=== PATIENT | male | born 1980 | race Hispanic/Latino ===

== ENCOUNTER 2018-08-01 12:12 | Emergency (ER) | payer SELFPAY ==
[2018-08-01] MEDS ORDERED: KETOROLAC TROMETHAMINE 30MG/ML ONE (12:48)
[2018-08-01] MEDS ORDERED: METHYLPREDNISOLONE SOD SUCC 125MG/2ML VIAL ONE (12:48)
[2018-08-01] MEDS ORDERED: DIAZEPAM 5 MG TABLET ONE (13:33)
== END 2018-08-01 14:08 | disposition home or self-care (01) ==
LOC: EDH 12:12
DX: M54.5 Low back pain (principal); L73.2 Hidradenitis suppurativa; E11.9 Type 2 diabetes mellitus without complications; F12.10 Cannabis abuse, uncomplicated; Z90.49 Acquired absence of other specified parts of digestive tract
CPT/HCPCS: 96372 ×2; 99283; J1885; J2930

== ENCOUNTER 2018-08-06 10:14 | Emergency (ER) | payer SELFPAY ==
[2018-08-06] MEDS ORDERED: LIDOCAINE 2%-EPI 1:200,000 20 ML VIAL IJ ONE (10:47)
== END 2018-08-06 11:23 | disposition home or self-care (01) ==
LOC: EDH 10:14
DX: L73.2 Hidradenitis suppurativa (principal); E11.9 Type 2 diabetes mellitus without complications; Z90.49 Acquired absence of other specified parts of digestive tract; Z72.0 Tobacco use
CPT/HCPCS: 10060; 99283; J3490

== ENCOUNTER 2019-04-26 20:22 | Emergency (ER) | payer OTHER ==
[2019-04-26] MEDS ORDERED: SODIUM CHLORIDE 0.9% 1000ML 1,000 ML IV ONE ×2 (21:10→22:13)
[2019-04-26 21:11] LABS: BASOPHILS % (AUTO) 0.9 % (0.0-5.0); EOSINOPHILS % (AUTO) 4.3 % (0.0-8.0); HEMATOCRIT 48.2 % (42-54); LYMPHOCYTES % (AUTO) 34.7 % (21.0-51.0); MEAN CORPUSCULAR HEMOGLOBIN 29.7 pg (27.0-33.0); NEUTROPHILS % (AUTO) 53.1 % (40.0-77.0); NUCLEATED RED BLOOD CELLS 0.1 % (0.0-0.19); PLATELET COUNT (AUTO) 144 K/uL (130-400); RED BLOOD CELL COUNT(AUTO) 5.68 MIL/uL (4.50-6.20); RED CELL DISTRIBUTION WIDTH 13.2 % (11.0-15.5); WHITE BLOOD COUNT (AUTO) 7.3 K/uL (4.8-10.8)
[2019-04-26 21:24] LABS: CREATININE 0.8 mg/dL (0.5-1.5); POTASSIUM 3.8 mmol/L (3.5-5.1)
[2019-04-26 21:28] LABS: INR 0.95 (0.85-1.15); PARTIAL THROMBOPLASTIN TIME 26.7 SEC (26.3-35.5)
[2019-04-26 21:36] LABS: BILIRUBIN,TOTAL 0.4 mg/dL (0.2-1.0); THYROID STIMULATING HORMONE 1.42 uIU/mL (0.36-3.74); TOTAL PROTEIN, SERUM 7.8 g/dL (6.0-8.3)
[2019-04-26 21:41] LABS: B-TYPE NATRIURETIC PEPTIDE 16 pg/mL (0-100)
[2019-04-26 21:50] LABS: APPEARANCE,URINE Clear (CLEAR); BILIRUBIN,URINE Negative (NEGATIVE); COLOR,URINE Dark Yellow (YELLOW); GLUCOSE, URINE (UA) >=1000 mg/dL (NEGATIVE); KETONES,URINE Negative (NEGATIVE); LEUKOCYTE ESTERASE ,URINE Negative (NEGATIVE); NITRATE,URINE Negative (NEGATIVE); OCCULT BLOOD,URINE Negative (NEGATIVE); PROTEIN,URINE POS 1+ mg/dL (NEGATIVE)
[2019-04-26 21:58] LABS: AMPHET/METH SCREEN,URINE NEGATIVE (NEGATIVE); BARBITURATE SCREEN, URINE NEGATIVE (NEGATIVE); BENZODIAZEPINES SCREEN,URINE NEGATIVE (NEGATIVE); CANNABINOID SCREEN,URINE POSITIVE (NEGATIVE); COCAINE SCREEN,URINE NEGATIVE (NEGATIVE); OPIATE SCREEN,URINE NEGATIVE (NEGATIVE); PHENCYCLIDINE SCREEN,URINE NEGATIVE (NEGATIVE)
[2019-04-26 22:02] LABS: BACTERIA,URINE Few /HPF (None Seen)
[2019-04-26 22:03] LABS: MUCUS,URINE Many LPF (None Seen); SPERM,URINE Moderate /HPF (None Seen); SQUAMOUS EPITHELIAL CELL,UR 0-2 /HPF (0-2)
[2019-04-26] MEDS ORDERED: ACETAMINOPHEN 325 MG TAB ONE (22:13)
[2019-04-26] MEDS ORDERED: METFORMIN HCL 500 MG TABLET ONE (22:50)
== END 2019-04-26 23:14 | disposition home or self-care (01) ==
LOC: EDH 20:22
DX: E86.9 Volume depletion, unspecified (principal); F41.1 Generalized anxiety disorder; E11.65 Type 2 diabetes mellitus with hyperglycemia; Z90.49 Acquired absence of other specified parts of digestive tract; Z72.0 Tobacco use
CPT/HCPCS: 36415; 71045; 80053; 80305; 81001; 82550; 82948; 83605; 83690; 83880; 84443; 84484; 85025; 85610; 85730; 93005; 96360; 96361; 99285; J7030 ×2

== ENCOUNTER 2019-07-29 12:08 | Inpatient (IN) | payer SELFPAY ==
[~2019-07-29] VITALS: Ht 182.9 cm; Wt 117.5 kg
[2019-07-29] MEDS ORDERED: ONDANSETRON HCL 4 MG/2 ML VIAL ONE ×2 (12:21→13:43)
[2019-07-29 12:26] LABS: BASOPHILS % (AUTO) 0.7 % (0.0-5.0); EOSINOPHILS % (AUTO) 1.8 % (0.0-8.0); LYMPHOCYTES % (AUTO) 26.4 % (21.0-51.0); MEAN CORPUSCULAR HGB CONC 34.4 g/dL (32.0-36.0); MEAN CORPUSCULAR VOLUME 87.2 fL (79-99); MONOCYTES % (AUTO) 6.5 % (3.0-13.0); NEUTROPHILS % (AUTO) 64.6 % (40.0-77.0); PLATELET COUNT (AUTO) 135 K/uL (130-400); RED BLOOD CELL COUNT(AUTO) 5.51 MIL/uL (4.50-6.20); WHITE BLOOD COUNT (AUTO) 8.3 K/uL (4.8-10.8)
[2019-07-29] MEDS ORDERED: SODIUM CHLORIDE 0.9% 1000ML 1,000 ML IV ONE ×3 (12:27→14:49)
[2019-07-29 12:38] LABS: CREATININE 0.9 mg/dL (0.5-1.5); POTASSIUM 3.7 mmol/L (3.5-5.1)
[2019-07-29 12:43] LABS: ALBUMIN 4.4 g/dL (3.5-5.0); BILIRUBIN,TOTAL 0.6 mg/dL (0.2-1.0); TOTAL PROTEIN, SERUM 8.1 g/dL (6.0-8.3)
[2019-07-29 13:59] LABS: APPEARANCE,URINE Clear (CLEAR); BILIRUBIN,URINE Negative (NEGATIVE); COLOR,URINE Yellow (YELLOW); GLUCOSE, URINE (UA) >=1000 mg/dL (NEGATIVE); KETONES,URINE 40 mg/dL (NEGATIVE); LEUKOCYTE ESTERASE ,URINE Negative (NEGATIVE); NITRATE,URINE Negative (NEGATIVE); OCCULT BLOOD,URINE Negative (NEGATIVE); PH,URINE 7.5 (5.0-8.0); PROTEIN,URINE Negative (NEGATIVE)
[2019-07-29 14:06] LABS: AMPHET/METH SCREEN,URINE NEGATIVE (NEGATIVE); BARBITURATE SCREEN, URINE NEGATIVE (NEGATIVE); BENZODIAZEPINES SCREEN,URINE NEGATIVE (NEGATIVE); CANNABINOID SCREEN,URINE POSITIVE (NEGATIVE); COCAINE SCREEN,URINE NEGATIVE (NEGATIVE); OPIATE SCREEN,URINE NEGATIVE (NEGATIVE); PHENCYCLIDINE SCREEN,URINE NEGATIVE (NEGATIVE)
[2019-07-29 14:35] LABS: BACTERIA,URINE Rare /HPF (None Seen); RBC,URINE 0-1 /HPF (0-1); SQUAMOUS EPITHELIAL CELL,UR Rare /HPF (0-2); WBC,URINE 0-1 /HPF (0-1)
[2019-07-29] MEDS ORDERED: KETOROLAC TROMETHAMINE 30MG/ML ONE (14:48)
[2019-07-29] MEDS ORDERED: ACETAMINOPHEN 650 MG SUPPOSITORY RC PRN (19:15)
[2019-07-29 22:00] VITALS: BP 145/99
--- NOTE | 2019-07-29 22:00 | NUR ---
ADMISSION PT ADMITTED FROM ER INTO ROOM 412, AWAKE, ALERT AND VERBALLY RESPONSIVE. NO C/O PAIN OR DISCOMFORT AT THIS TIME. MEDICATED PREVIOUSLY FOR NAUSEA AND PAIN IN THE ER STATES HE IS FEELING FINE. PT AND FAMILY ORIENTED TO ROOM, CALL PHELAN WITHIN REACH, BED IN LOWEST POSITION. Addendum: 07/29/19 at 2228 by MALKA BURLESON RN Amended: Links added.
[2019-07-29] MEDS: FAMOTIDINE/PF 20 MG/2 ML VIAL IV SCH (22:37)
[2019-07-29] MEDS: LACTATED RINGERS 1000ML 1,000 ML IV SCH (22:37)
[2019-07-29 23:19] VITALS: BP 172/102
[2019-07-29] MEDS: PROMETHAZINE HCL 25 MG/ML 1ML AMPULE IM SCH (23:35)
[2019-07-30] VITALS (7 sets, daily range): BP systolic 124–159; BP diastolic 70–91
[2019-07-30] MEDS: LACTATED RINGERS 1000ML 1,000 ML IV SCH ×3 (06:07→20:32)
[2019-07-30 06:20] LABS: BASOPHILS % (AUTO) 0.4 % (0.0-5.0); HEMATOCRIT 42.6 % (42-54); MEAN CORPUSCULAR HEMOGLOBIN 29.7 pg (27.0-33.0); MEAN CORPUSCULAR HGB CONC 34.6 g/dL (32.0-36.0); MEAN CORPUSCULAR VOLUME 85.9 fL (79-99); MONOCYTES % (AUTO) 5.9 % (3.0-13.0); NEUTROPHILS % (AUTO) 78.7 % (40.0-77.0); NUCLEATED RED BLOOD CELLS 0.1 % (0.0-0.19); PLATELET COUNT (AUTO) 140 K/uL (130-400); RED BLOOD CELL COUNT(AUTO) 4.96 MIL/uL (4.50-6.20); WHITE BLOOD COUNT (AUTO) 8.4 K/uL (4.8-10.8)
[2019-07-30 06:25] LABS: HEMOGLOBIN A1C 8.7 % (4.0-6.0)
[2019-07-30 06:40] LABS: ALANINE AMINOTRANSFERASE 20 U/L (12-78); ALBUMIN 3.5 g/dL (3.5-5.0); ASPARTATE AMINOTRANSFERASE 25 U/L (10-37); BILIRUBIN,TOTAL 0.5 mg/dL (0.2-1.0); CARBON DIOXIDE 25 mmol/L (21-32); CHLORIDE 102 mmol/L (101-111); CHOLESTEROL 226 mg/dL (<200); CREATININE 0.8 mg/dL (0.5-1.5); GLOMERULAR FILTR. RATE CALC 115 mL/min (>60); GLUCOSE,RANDOM 224 mg/dL (70-105); HDL CHOLESTEROL 52 mg/dL (29-71); LDL DIRECT 146 mg/dL (0-99); POTASSIUM 3.6 mmol/L (3.5-5.1); SODIUM SERUM 138 mmol/L (136-145); TOTAL PROTEIN, SERUM 6.8 g/dL (6.0-8.3); TRIGLYCERIDES 83 mg/dL (30-200); UREA NITROGEN, BLOOD 9 mg/dL (7-18)
[2019-07-30] MEDS ORDERED: DEXTROSE 50%-WATER 50 ML DISP.SYRIN IV PRN (08:30)
[2019-07-30] MEDS ORDERED: GLUCAGON 1MG KIT 1 MG ML IM PRN (08:30)
[2019-07-30] MEDS: CEFTRIAXONE SODIUM 1 GM IVP SCH ×2 (09:36→20:32)
[2019-07-30] MEDS: ENOXAPARIN SODIUM 30 MG/0.3 ML SQ SCH (09:37)
[2019-07-30] MEDS: FAMOTIDINE/PF 20 MG/2 ML VIAL IV SCH ×2 (09:37→20:31)
[2019-07-30] MEDS: ONDANSETRON HCL 4 MG/2 ML VIAL IVP PRN ×3 (10:08→23:39)
[2019-07-30] MEDS: INSULIN HUMULIN R 100 UNIT/ML 3ML SQ SCH ×3 (12:19→20:32)
--- NOTE | 2019-07-30 18:01 | NUR ---
INITIAL MET W PT, MOM AT BEDSIDE; PT IS INDP OF ADLS, NO DME/HH/PROVE; EMPOLYED, HX DIABETS, NO FOLLOWUP OR MD OVERSIGHT COUNSELLED, RESOURCE PKT GIVEN Addendum: 07/30/19 at 1802 by CYRIL LARKIN RN CM Amended: Links added.
[2019-07-30] MEDS: PROMETHAZINE HCL 25 MG/ML 1ML AMPULE IM SCH (18:16)
[2019-07-30] MEDS: PROMETHAZINE HCL 25 MG/ML 1ML AMPULE IM PRN (18:43)
[2019-07-31] MEDS: PROMETHAZINE HCL 25 MG/ML 1ML AMPULE IM PRN ×2 (03:37→21:44)
[2019-07-31 03:42] VITALS: BP 152/91
[2019-07-31 04:53] LABS: HEMATOCRIT 44.2 % (42-54); MEAN CORPUSCULAR HEMOGLOBIN 28.8 pg (27.0-33.0); MEAN CORPUSCULAR HGB CONC 34.8 g/dL (32.0-36.0); MEAN CORPUSCULAR VOLUME 82.6 fL (79-99); PLATELET COUNT (AUTO) 158 K/uL (130-400); RED BLOOD CELL COUNT(AUTO) 5.35 MIL/uL (4.50-6.20); RED CELL DISTRIBUTION WIDTH 12.1 % (11.0-15.5); WHITE BLOOD COUNT (AUTO) 8.8 K/uL (4.8-10.8)
[2019-07-31 05:10] LABS: ALBUMIN 3.9 g/dL (3.5-5.0); BILIRUBIN,TOTAL 0.8 mg/dL (0.2-1.0); CREATININE 0.9 mg/dL (0.5-1.5); POTASSIUM 4.1 mmol/L (3.5-5.1); TOTAL PROTEIN, SERUM 7.5 g/dL (6.0-8.3)
[2019-07-31] MEDS: LACTATED RINGERS 1000ML 1,000 ML IV SCH ×3 (06:24→21:44)
[2019-07-31] MEDS: INSULIN HUMULIN R 100 UNIT/ML 3ML SQ SCH ×4 (06:30→21:00)
[2019-07-31] MEDS: ONDANSETRON HCL 4 MG/2 ML VIAL IVP PRN ×2 (06:39→15:44)
[2019-07-31] MEDS: FAMOTIDINE/PF 20 MG/2 ML VIAL IV SCH (08:03)
[2019-07-31] MEDS: CEFTRIAXONE SODIUM 1 GM IVP SCH ×2 (08:05→21:37)
[2019-07-31] MEDS: ENOXAPARIN SODIUM 30 MG/0.3 ML SQ SCH (08:06)
[2019-07-31 08:20] VITALS: BP 152/94
[2019-07-31] MEDS: MORPHINE SULFATE 2 MG/ML 1ML SYG IVP PRN ×3 (10:16→21:44)
[2019-07-31 11:37] VITALS: BP 158/86
[2019-07-31] MEDS ORDERED: PHARMACY COMMUNICATION MISC SCH (12:30)
[2019-07-31] MEDS ORDERED: LANSOPRAZOLE 15 MG SOLU TAB PO SCH (13:00)
[2019-07-31 17:03] VITALS: BP 145/95
[2019-07-31] MEDS: LISINOPRIL 10 MG TABLET PO SCH (17:05)
[2019-07-31 20:00] VITALS: BP 141/71
[2019-07-31 23:41] VITALS: BP 144/92
[2019-08-01 04:00] VITALS: BP 147/91
[2019-08-01] MEDS: PROMETHAZINE HCL 25 MG/ML 1ML AMPULE IM PRN ×2 (05:15→20:31)
[2019-08-01] MEDS: MORPHINE SULFATE 2 MG/ML 1ML SYG IVP PRN ×3 (05:15→20:33)
[2019-08-01] MEDS: ONDANSETRON HCL 4 MG/2 ML VIAL IVP PRN ×2 (06:25→17:22)
[2019-08-01] MEDS: LACTATED RINGERS 1000ML 1,000 ML IV SCH ×3 (06:55→21:38)
[2019-08-01] MEDS: INSULIN HUMULIN R 100 UNIT/ML 3ML SQ SCH ×4 (07:30→21:44)
[2019-08-01 08:00] VITALS: BP 139/91
[2019-08-01] MEDS: ENOXAPARIN SODIUM 30 MG/0.3 ML SQ SCH (09:00)
[2019-08-01] MEDS ORDERED: PANTOPRAZOLE 40 MG/VIAL IVP SCH (09:00)
[2019-08-01] MEDS: CEFTRIAXONE SODIUM 1 GM IVP SCH ×2 (09:09→21:38)
[2019-08-01] MEDS: PANTOPRAZOLE SODIUM 40 MG TABLET.DR PO SCH (09:09)
[2019-08-01] MEDS: LISINOPRIL 10 MG TABLET PO SCH (09:10)
[2019-08-01 12:00] VITALS: BP 146/91
--- NOTE | 2019-08-01 14:34 | NUR ---
Diet education: Heart healthy/Diabetic Printed materials or provided on heart healthy diet and diabetic diet therapy. Pt encouraged to strictly monitor blood sugars and diet due to Diabetes diagnosis. Pt with multiple nutritional questions, all questions answered by RD, pt verbalized understanding. Encouraged pt to reduce cholesterol foods and increase fiber intake. Pt also encouraged to monitor portion control of carbohydrates. Nutrition label reviewed with pt, emphasis on Total Carbohydrates and serving sizes. Addendum: 08/01/19 at [address] RD Amended: Links added.
--- NOTE | 2019-08-01 14:41 | NUR ---
Nutrition intervention: Nutrition notification for diet education. Pt admitted with Intractable abdominal pain, n/v. Currently pt reports no nutritional concerns with N/V/D, chewing or swallowing difficulties. Pt states LBM 07/29 however he is not concerned due to taking stool softener on Tuesday and not having much to eat since then. Pt reports passing gas. Reviewed Diabetic and Heart Healthy diet therapy with patient with emphasis on portion control, increased fiber, reading nutrition label and continued physical activity. Pt verbalized understanding. Recommendations: When medically feasible, advance diet therapy to CCD 75gm, heart healthy diet therapy for appropriate diet placement. Monitor I/O. Consult RD as nutrition concerns arise. Addendum: 08/01/19 at [address] RD Amended: Links added.
[2019-08-01 16:00] VITALS: BP 143/85
[2019-08-01 19:00] VITALS: BP 167/98
--- NOTE | 2019-08-01 21:54 | NUR ---
NOTE PATIENT CONTINUES WITH PAIN AND NAUSEA AFTER RECEIVING MORPHINE AND PHENERGAN AT 2032; AND ZOFRAN AT 1721. PAGED HOSPITALIST DANIEL BIRCH SHAPER AND PRESSER RESPONDED NOTIFIED OF PATIENT GAVE REPORT ON HIM. ORDERS RECEIVED FOR A DOSE OF DILAUDID 0.5MG IV X1. SAID WILL COME TO SEE PATIENT LATER TO SEE IF HE NEEDS ANYTHING FURTHER. NOTIFIED PATIENT AND MEDICATED WITH DILAUDID.
[2019-08-01] MEDS ORDERED: HYDROMORPHONE HCL 0.5 MG/0.5 ML ML ONE (21:58)
[2019-08-01] MEDS ORDERED: HYDROMORPHONE HCL 0.5 MG/0.5 ML ML IVP SCH (22:00)
--- NOTE | 2019-08-01 23:37 | NUR ---
NOTE DANIEL BIRCH R D INTERN CAME TO SEE PATIENT. SAY HE IS BETTER AND DOES NOT NEED ANY FURTHER INTERVENTIONS AT THIS TIME. SPOKE WITH PATIENT AND HE DID CONFIRM THAT NAUSEA AND PAIN ARE RELIEVED.
[2019-08-02] VITALS: BP 144/87
[2019-08-02 04:00] VITALS: BP 140/79
--- NOTE | 2019-08-02 05:00 | NUR ---
NOTE PATIENT REPORT THAT HE HAS NOT HAD ANY MORE EPISODES OF NAUSEA AND/OR ABDOMINAL PAIN.
[2019-08-02 05:43] LABS: BASOPHILS % (AUTO) 0.4 % (0.0-5.0); EOSINOPHILS % (AUTO) 1.3 % (0.0-8.0); HEMATOCRIT 43.8 % (42-54); LYMPHOCYTES % (AUTO) 30.1 % (21.0-51.0); MEAN CORPUSCULAR HEMOGLOBIN 28.8 pg (27.0-33.0); MEAN CORPUSCULAR HGB CONC 34.5 g/dL (32.0-36.0); MEAN CORPUSCULAR VOLUME 83.4 fL (79-99); MONOCYTES % (AUTO) 11.9 % (3.0-13.0); NEUTROPHILS % (AUTO) 55.8 % (40.0-77.0); PLATELET COUNT (AUTO) 144 K/uL (130-400); RED BLOOD CELL COUNT(AUTO) 5.25 MIL/uL (4.50-6.20); RED CELL DISTRIBUTION WIDTH 12.1 % (11.0-15.5); WHITE BLOOD COUNT (AUTO) 8.2 K/uL (4.8-10.8)
[2019-08-02 05:48] LABS: ALBUMIN 3.4 g/dL (3.5-5.0); BILIRUBIN,TOTAL 0.6 mg/dL (0.2-1.0); POTASSIUM 3.3 mmol/L (3.5-5.1); TOTAL PROTEIN, SERUM 6.8 g/dL (6.0-8.3)
[2019-08-02] MEDS: INSULIN HUMULIN R 100 UNIT/ML 3ML SQ SCH ×4 (06:00→21:00)
[2019-08-02] MEDS: LACTATED RINGERS 1000ML 1,000 ML IV SCH ×2 (06:02→21:27)
[2019-08-02] MEDS: ONDANSETRON HCL 4 MG/2 ML VIAL IVP PRN ×3 (06:36→18:49)
[2019-08-02] MEDS: MORPHINE SULFATE 2 MG/ML 1ML SYG IVP PRN ×3 (06:40→22:45)
[2019-08-02 08:00] VITALS: BP 150/93
[2019-08-02] MEDS: HYDROMORPHONE 1 MG/1 ML AMP IVP PRN (08:14)
[2019-08-02] MEDS: ENOXAPARIN SODIUM 30 MG/0.3 ML SQ SCH (08:55)
[2019-08-02] MEDS: CEFTRIAXONE SODIUM 1 GM IVP SCH ×2 (08:57→21:28)
[2019-08-02] MEDS: LISINOPRIL 10 MG TABLET PO SCH (10:34)
[2019-08-02] MEDS: PANTOPRAZOLE SODIUM 40 MG TABLET.DR PO SCH (10:34)
[2019-08-02 11:59] VITALS: BP 146/84
[2019-08-02 16:00] VITALS: BP 149/81
[2019-08-02 19:00] VITALS: BP 151/96
[2019-08-02] MEDS ORDERED: POTASSIUM CHLORIDE 20 MEQ ERTAB PO PRN (19:15)
[2019-08-02] MEDS ORDERED: LIDOCAINE HCL-MPF 1% 2ML VIAL IV PRN (19:15)
[2019-08-02] MEDS ORDERED: POTASSIUM CHLORIDE 20MEQ/100ML 100 ML IV PRN (19:15)
[2019-08-02] MEDS ORDERED: POTASSIUM CHLORIDE 10% ELIXIR 20 MEQ/15 ML UDCUP PO PRN (19:15)
[2019-08-02] MEDS: PROMETHAZINE HCL 25 MG/ML 1ML AMPULE IM PRN (22:50)
[2019-08-03] VITALS (28 sets, daily range): BP systolic 136–164; BP diastolic 79–106
[2019-08-03 05:54] LABS: BASOPHILS % (AUTO) 0.3 % (0.0-5.0); EOSINOPHILS % (AUTO) 1.9 % (0.0-8.0); HEMATOCRIT 43.5 % (42-54); LYMPHOCYTES % (AUTO) 30.6 % (21.0-51.0); MEAN CORPUSCULAR HEMOGLOBIN 28.9 pg (27.0-33.0); MEAN CORPUSCULAR HGB CONC 34.7 g/dL (32.0-36.0); MEAN CORPUSCULAR VOLUME 83.3 fL (79-99); MONOCYTES % (AUTO) 10.5 % (3.0-13.0); NEUTROPHILS % (AUTO) 56.3 % (40.0-77.0); PLATELET COUNT (AUTO) 146 K/uL (130-400); RED BLOOD CELL COUNT(AUTO) 5.22 MIL/uL (4.50-6.20); RED CELL DISTRIBUTION WIDTH 12.1 % (11.0-15.5); WHITE BLOOD COUNT (AUTO) 7.8 K/uL (4.8-10.8)
[2019-08-03 06:13] LABS: ALBUMIN 3.3 g/dL (3.5-5.0); BILIRUBIN,TOTAL 0.7 mg/dL (0.2-1.0); CREATININE 0.9 mg/dL (0.5-1.5); POTASSIUM 3.5 mmol/L (3.5-5.1); TOTAL PROTEIN, SERUM 6.7 g/dL (6.0-8.3)
[2019-08-03] MEDS: INSULIN HUMULIN R 100 UNIT/ML 3ML SQ SCH ×4 (06:20→20:58)
[2019-08-03] MEDS: LACTATED RINGERS 1000ML 1,000 ML IV SCH ×3 (06:43→19:15)
[2019-08-03] MEDS: ONDANSETRON HCL 4 MG/2 ML VIAL IVP PRN ×2 (06:43→14:57)
[2019-08-03] MEDS: MORPHINE SULFATE 2 MG/ML 1ML SYG IVP PRN ×2 (06:44→20:53)
--- NOTE | 2019-08-03 08:10 | NUR ---
NOTE AAOX3. C/O SORENESS TO RUQ. HE REMAINS NPO FOR SURGERY TODAY. OTHERWISE STABLE.
[2019-08-03] MEDS: ENOXAPARIN SODIUM 30 MG/0.3 ML SQ SCH (09:00)
[2019-08-03] MEDS: CEFTRIAXONE SODIUM 1 GM IVP SCH ×2 (10:34→20:52)
[2019-08-03] MEDS: PANTOPRAZOLE SODIUM 40 MG TABLET.DR PO SCH (10:34)
[2019-08-03] MEDS: LISINOPRIL 10 MG TABLET PO SCH (10:34)
[2019-08-03] MEDS ORDERED: LIDOCAINE PF 2% 5ML ABBOJECT ONE (11:23)
[2019-08-03] MEDS ORDERED: SUCCINYLCHOLINE 200MG/10ML SYR ONE (11:23)
[2019-08-03] MEDS ORDERED: PROPOFOL 10 MG/ML 20ML VIAL IV ONE (11:24)
[2019-08-03] MEDS ORDERED: ROCURONIUM 10MG/1ML SYR 10 MG/ML ML ONE (11:24)
[2019-08-03] MEDS ORDERED: FENTANYL CITRATE PF 50 MCG/1 ML 2ML VIAL ONE ×2 (11:24→13:57)
[2019-08-03] MEDS ORDERED: SODIUM CHLORIDE 0.9% 1000ML 1,000 ML IV ONE (12:22)
[2019-08-03] MEDS ORDERED: MIDAZOLAM HCL 1 MG/ML 2ML VIAL ONE (12:45)
[2019-08-03] MEDS ORDERED: BUPIVACAINE/PF 0.5% 30ML VIAL ONE (13:09)
[2019-08-03] MEDS ORDERED: BUPIVACAINE/PF 0.25% 30ML VIAL IJ ONE (13:09)
[2019-08-03] MEDS ORDERED: ESMOLOL HCL 10 MG/ML 10 ML VIAL ONE (13:37)
[2019-08-03] MEDS ORDERED: ONDANSETRON HCL 4 MG/2 ML VIAL ONE (13:47)
[2019-08-03] MEDS ORDERED: GLYCOPYRROLATE 1 MG/5 ML SYRINGE ONE (13:47)
[2019-08-03] MEDS ORDERED: KETOROLAC TROMETHAMINE 30MG/ML ONE (13:47)
[2019-08-03] MEDS ORDERED: NEOSTIGMINE 5MG/5ML SYR IV ONE (13:47)
[2019-08-03] MEDS ORDERED: MEPERIDINE-PF 25 MG/ML SYG ONE ×4 (13:51→14:32)
[2019-08-03] MEDS ORDERED: LABETALOL HCL 5 MG/ML 20ML VIAL IV ONE (14:40)
[2019-08-03] MEDS ORDERED: METOCLOPRAMIDE 10 MG/2 ML VIAL ONE (14:55)
[2019-08-03] MEDS: HYDROMORPHONE 1 MG/1 ML AMP IVP PRN (16:01)
--- NOTE | 2019-08-03 18:00 | NUR ---
NOTE WENT AND CAME BACK FROM CHOLECYSTECTOMY. DIET ORDERED. DRESSINGS X3 TO ABDOMEN D/I. C/O SEVERE PAIN ON ARRIVAL BUT WAS MEDICATED AND IS REQUESTING MORE PAIN MEDS AND IT IS NOT TIME. I INSTRUCTED HIM TO GET OUT OF BED AND WALKED WE HAD DISCUSSED. FAMILY AT HIS SIDE. WILL ASSIST HIM DOING THIS.
[2019-08-03] MEDS ORDERED: HYDRALAZINE HCL 20 MG/ML VIAL IV PRN (23:15)
[2019-08-04] VITALS (7 sets, daily range): BP systolic 130–171; BP diastolic 82–91
[2019-08-04] MEDS: HYDROMORPHONE 1 MG/1 ML AMP IVP PRN (00:18)
[2019-08-04] MEDS ORDERED: METOPROLOL TARTRATE 1 MG/ML 5ML VIAL IV PRN ×2 (02:30→03:00)
[2019-08-04] MEDS: LACTATED RINGERS 1000ML 1,000 ML IV SCH ×2 (02:35→05:45)
[2019-08-04] MEDS ORDERED: METOPROLOL TARTRATE 1 MG/ML 5ML VIAL IV ONE (03:02)
[2019-08-04] MEDS: MORPHINE SULFATE 2 MG/ML 1ML SYG IVP PRN (03:35)
[2019-08-04 05:44] LABS: BASOPHILS % (AUTO) 0.1 % (0.0-5.0); EOSINOPHILS % (AUTO) 0.1 % (0.0-8.0); HEMATOCRIT 41.9 % (42-54); LYMPHOCYTES % (AUTO) 12.8 % (21.0-51.0); MEAN CORPUSCULAR HEMOGLOBIN 28.6 pg (27.0-33.0); MEAN CORPUSCULAR HGB CONC 34.4 g/dL (32.0-36.0); MEAN CORPUSCULAR VOLUME 83.3 fL (79-99); MONOCYTES % (AUTO) 9.9 % (3.0-13.0); NEUTROPHILS % (AUTO) 76.6 % (40.0-77.0); PLATELET COUNT (AUTO) 154 K/uL (130-400); RED BLOOD CELL COUNT(AUTO) 5.03 MIL/uL (4.50-6.20); RED CELL DISTRIBUTION WIDTH 12.3 % (11.0-15.5); WHITE BLOOD COUNT (AUTO) 9.6 K/uL (4.8-10.8)
[2019-08-04 05:51] LABS: CARBON DIOXIDE 24 mmol/L (21-32); CHLORIDE 99 mmol/L (101-111); CREATININE 0.9 mg/dL (0.5-1.5); GLOMERULAR FILTR. RATE CALC 100 mL/min (>60); GLUCOSE,RANDOM 224 mg/dL (70-105); POTASSIUM 4.3 mmol/L (3.5-5.1); SODIUM SERUM 134 mmol/L (136-145); UREA NITROGEN, BLOOD 11 mg/dL (7-18)
[2019-08-04 06:04] LABS: ALANINE AMINOTRANSFERASE 48 U/L (12-78); ALBUMIN 3.1 g/dL (3.5-5.0); ASPARTATE AMINOTRANSFERASE 39 U/L (10-37); BILIRUBIN,TOTAL 0.7 mg/dL (0.2-1.0); CREATINE KINASE, TOTAL 140 U/L (21-232); MYOGLOBIN 27 ng/mL (10-92); TOTAL PROTEIN, SERUM 6.6 g/dL (6.0-8.3); TROPONIN I < 0.04 ng/mL (0.00-0.06)
[2019-08-04] MEDS: INSULIN HUMULIN R 100 UNIT/ML 3ML SQ SCH ×4 (06:30→21:33)
--- NOTE | 2019-08-04 07:01 | NUR ---
status to or per stretcher to Addendum: 08/04/19 at 0706 by MARYAN SARGENT RN RN Amended: Links added.
[2019-08-04] MEDS: CEFTRIAXONE SODIUM 1 GM IVP SCH ×2 (09:30→21:31)
[2019-08-04] MEDS: LISINOPRIL 10 MG TABLET PO SCH (09:35)
--- NOTE | 2019-08-04 09:35 | NUR ---
METOPROLOL IV PATIENT RESTING IN BED, REPORTS NO SYMPTOMS OF DISTRESS. INFORMED THAT HEART RATE WAS ELEVATED AND WILL BE GIVEN PRN MEDICATION METOPROLOL. CALLED [employer] MONITOR AND HEART RATE REPORTED AT 118 AT THIS TIME. ADMINISTERED METOPROLOL 5MG IV GIVEN OVER 3-4 MINUTES.
[2019-08-04] MEDS: PANTOPRAZOLE SODIUM 40 MG TABLET.DR PO SCH (09:36)
[2019-08-04] MEDS: ENOXAPARIN SODIUM 30 MG/0.3 ML SQ SCH (09:45)
--- NOTE | 2019-08-04 09:55 | NUR ---
MEDICATION EFFECT HEART RATE APPEARS TO HAVE DECREASED TO THE 90'S RANGE. PATIENT IS RESTING IN BED AND REPORTS NO DISTRESSING SYMPTOMS, WILL CONTINUE TO MONITOR.
[2019-08-04] MEDS ORDERED: ACETAMINOPHEN-CODEINE 300/30MG TAB PO PRN ×3 (10:15→12:30)
--- NOTE | 2019-08-04 10:30 | NUR ---
Denilson PEREZ NP FOR HOSPITALIST Denilson PEREZ NP FOR HOSPITALIST ROUNDING AT THIS TIME. INFORMED OF PATIENT TRENDS IN ELEVATED HEART RATE REPORTED BY SHIP FITTER NURSE AND ELEVATED HEART RATE THIS MORNING, NURSING INTERVENTIONS, AND PATIENT RESPONSE TO METOPROLOL IV.
--- NOTE | 2019-08-04 12:15 | NUR ---
PATIENT COMPLAINT PATIENT COMPLAINS OF URINE DRIBBLING WHEN PATIENT VOIDS. PATIENT REPORTS THAT HE FEELS LIKE HE IS URINATING "ONLY A LITTLE BIT". PERFORMED BLADDER SCAN AND OBTAINED READING OF 0 ML. INFORMED Denilson PEREZ NP FOR DR. MIN OF PATIENT COMPLAINT AND NURSING INTERVENTIONS. NO NEW ORDER AT THIS TIME.
[2019-08-04] MEDS: METOPROLOL TARTRATE 25 MG TAB PO SCH ×2 (12:43→21:31)
--- NOTE | 2019-08-04 16:15 | NUR ---
DR. PAKO GREENBERG ROUNDING AT THIS TIME WITH Denilson PEREZ NP. AWARE THAT LESLEY CASPER FOR DR. CHATMAN HAS OKAYED PATIENT FOR DISCHARGE. Addendum: 08/04/19 at 1744 by SARAH BETH SAMANO RN RN INFORMED Denilson PEREZ NP OF PATIENT RESPONSE TO METOPROLOL 25MG P0. PATIENT HEART RATE 80'S-90'S WHEN AT REST. PATIENT HEART RATE UP TO 120'S WHEN AMBULATING. Denilson PEREZ NP TOLD ME POSSIBLE DISCHARGE PLAN FOR TOMORROW, CONTINUE TO MONITOR PATIENT ONE MORE NIGHT TO MONITOR FOR SIGNIFICANT ELEVATIONS IN HEART RATE.
[2019-08-05] VITALS: BP 139/83
[2019-08-05 03:50] VITALS: BP 140/79
[2019-08-05] MEDS: LACTATED RINGERS 1000ML 1,000 ML IV SCH (05:21)
[2019-08-05 06:05] LABS: BASOPHILS % (AUTO) 0.1 % (0.0-5.0); EOSINOPHILS % (AUTO) 1.7 % (0.0-8.0); HEMATOCRIT 36.3 % (42-54); LYMPHOCYTES % (AUTO) 25.7 % (21.0-51.0); MEAN CORPUSCULAR HEMOGLOBIN 28.8 pg (27.0-33.0); MEAN CORPUSCULAR HGB CONC 34.2 g/dL (32.0-36.0); MEAN CORPUSCULAR VOLUME 84.2 fL (79-99); MONOCYTES % (AUTO) 12.3 % (3.0-13.0); NEUTROPHILS % (AUTO) 59.8 % (40.0-77.0); PLATELET COUNT (AUTO) 135 K/uL (130-400); RED BLOOD CELL COUNT(AUTO) 4.31 MIL/uL (4.50-6.20); RED CELL DISTRIBUTION WIDTH 12.2 % (11.0-15.5); WHITE BLOOD COUNT (AUTO) 8.2 K/uL (4.8-10.8)
[2019-08-05 06:48] LABS: BILIRUBIN,TOTAL 0.6 mg/dL (0.2-1.0); CREATININE 0.7 mg/dL (0.5-1.5); POTASSIUM 3.5 mmol/L (3.5-5.1); TOTAL PROTEIN, SERUM 6.2 g/dL (6.0-8.3)
[2019-08-05] MEDS: ONDANSETRON HCL 4 MG/2 ML VIAL IVP PRN (07:05)
[2019-08-05] MEDS: INSULIN HUMULIN R 100 UNIT/ML 3ML SQ SCH ×2 (07:30→13:01)
[2019-08-05 08:00] VITALS: BP 146/99
--- NOTE | 2019-08-05 08:00 | NUR ---
NOTE AAOX3. STATES HE HAS BEEN FEELING BETTER FROM ABDOMINAL SURGERY AND INCISIONS. HE HAS BEEN WALKING IN THE [place]ALL[place]. NO N/V SORE FROM SMALL INCISIONS ONLY. HAS BEEN TAKING DEEP BREATHS AND COUGHING UP SOME PHLEGM THAT AT TIMES MAKES HIM A LITTLE NAUSEATED BUT GOES AWAY AFTER HE BRINGS IT UP. TOLERATING DIET WELL. DC WAS HELD YESTERDAY BECAUSE HE HAD ELEVATED HEART RATE. HIS HEART RATE LOW 100'S. 90'S. TELEMETRY SR. POSSIBLE DC TODAY.
[2019-08-05] MEDS: METOPROLOL TARTRATE 25 MG TAB PO SCH ×2 (10:04→12:30)
[2019-08-05] MEDS: PANTOPRAZOLE SODIUM 40 MG TABLET.DR PO SCH (10:04)
[2019-08-05] MEDS: LISINOPRIL 10 MG TABLET PO SCH (10:04)
[2019-08-05] MEDS: ENOXAPARIN SODIUM 30 MG/0.3 ML SQ SCH (10:05)
[2019-08-05] MEDS: CEFTRIAXONE SODIUM 1 GM IVP SCH (10:05)
[2019-08-05 11:00] VITALS: BP 149/94
[2019-08-05] MEDS ORDERED: CEPH-578 PO (14:23)
[2019-08-05] MEDS ORDERED: METR-172 PO (14:23)
--- NOTE | 2019-08-05 15:30 | NUR ---
NOTE CLEAR FOR DC BY BOTH PRIMARY ADN SURGEON. WILL PROCEED WITH DC
--- NOTE | 2019-08-05 18:15 | NUR ---
NOTE DISCHARGE INSTRUCTIONS GIVEN TO PATIENT AT THIS TIME. WAS PRESENT DURING THIS. VERBALIZED UNDERSTANDING. REFER TO DC SUMMARY FOR DETAILS.
== END 2019-08-05 18:40 | disposition home or self-care (01) | DRG 419 ==
LOC: EDH 12:08 → EDHIP 12:09 → UNDOADMIN 18:55 → EDHIP 18:55 → 4BH 20:51
PROVIDERS: ADMIT Internal Medicine; ATTEND Internal Medicine
PROC: 0FT44ZZ Resection of Gallbladder, Percutaneous Endoscopic Approach (ICD-10-PCS; principal; 2019-08-03 13:05)
DX: K80.62 Calculus of gallbladder and bile duct with acute cholecystitis without obstruction (principal); K57.30 Diverticulosis of large intestine without perforation or abscess without bleeding; E66.9 Obesity, unspecified; R16.0 Hepatomegaly, not elsewhere classified; F12.10 Cannabis abuse, uncomplicated; E11.65 Type 2 diabetes mellitus with hyperglycemia; I10 Essential (primary) hypertension; K76.0 Fatty (change of) liver, not elsewhere classified; K82.8 Other specified diseases of gallbladder; Z68.35 Body mass index [BMI] 35.0-35.9, adult
CPT/HCPCS: 36415; 71045; 74176; 74181; 76705; 80053; 80061; 80305; 81001; 82150; 82550; 82948; 83036; 83690; 83874; 84145; 84484; 85025; 85027; 93005; 96374; G0378; J0330; J0360; J0696; J1170; J1650; J1815; J1885; J2001; J2175; J2250; J2405; J2550; J2704; J2710; J2765; J3010; J3480; J3490; J7030; J7120

== ENCOUNTER 2019-09-03 07:52 | Emergency (ER) | payer OTHER ==
[~2019-09-03 07:52] MED LIST: CEPH-578 PO; METR-172 PO
== END 2019-09-03 08:22 | disposition home or self-care (01) ==
LOC: EDH 07:52
DX: R11.10 Vomiting, unspecified (principal); E11.9 Type 2 diabetes mellitus without complications; Z90.49 Acquired absence of other specified parts of digestive tract; Z98.890 Other specified postprocedural states
CPT/HCPCS: 99281

== ENCOUNTER 2020-08-16 12:15 | Emergency (ER) | payer SELFPAY ==
[2020-08-16 12:45] LABS: BASOPHILS % (AUTO) 0.3 % (0.0-5.0); EOSINOPHILS % (AUTO) 0.7 % (0.0-8.0); HEMATOCRIT 45.8 % (42-54); LYMPHOCYTES % (AUTO) 26.3 % (21.0-51.0); MEAN CORPUSCULAR HEMOGLOBIN 29.7 pg (27.0-33.0); MEAN CORPUSCULAR HGB CONC 35.8 g/dL (32.0-36.0); MEAN CORPUSCULAR VOLUME 82.8 fL (79-99); MONOCYTES % (AUTO) 7.5 % (3.0-13.0); NEUTROPHILS % (AUTO) 64.9 % (40.0-77.0); PLATELET COUNT (AUTO) 156 K/uL (130-400); RED BLOOD CELL COUNT(AUTO) 5.53 MIL/uL (4.50-6.20); RED CELL DISTRIBUTION WIDTH 11.8 % (11.0-15.5)
[2020-08-16 12:46] LABS: APPEARANCE,URINE Clear (CLEAR); BILIRUBIN,URINE Negative (NEGATIVE); COLOR,URINE Dark Yellow (YELLOW); GLUCOSE, URINE (UA) >=1000 mg/dL (NEGATIVE); KETONES,URINE 40 mg/dL (NEGATIVE); LEUKOCYTE ESTERASE ,URINE Negative (NEGATIVE); NITRATE,URINE Negative (NEGATIVE); OCCULT BLOOD,URINE Negative (NEGATIVE); PROTEIN,URINE POS 1+ mg/dL (NEGATIVE)
[2020-08-16] MEDS ORDERED: MAG/ALUM/SIMETH 30 ML UDCUP ONE (12:51)
[2020-08-16] MEDS ORDERED: LIDOCAINE HCL 2% VISCOUS 15 ML UDCUP ONE (12:51)
[2020-08-16] MEDS ORDERED: DICYCLOMINE 20MG (10MG/ML) AMP IM ONE (12:52)
[2020-08-16] MEDS ORDERED: FAMOTIDINE 20MG VIAL IV ONE (12:52)
[2020-08-16 13:03] LABS: BILIRUBIN,TOTAL 0.6 mg/dL (0.2-1.0); POTASSIUM 3.2 mmol/L (3.5-5.1); TOTAL PROTEIN, SERUM 7.3 g/dL (6.0-8.3)
[2020-08-16 13:12] LABS: ALBUMIN 3.9 g/dL (3.5-5.0); CREATININE 0.9 mg/dL (0.5-1.5)
[2020-08-16] MEDS ORDERED: IOHEXOL-350 75 ML VIAL IV ONE (13:17)
[2020-08-16 13:27] LABS: BACTERIA,URINE Rare /HPF (None Seen); MUCUS,URINE Few LPF (None Seen); RBC,URINE None Seen /HPF (0-1)
[2020-08-16 13:28] LABS: OTHER CASTS, URINE WBC CASTS 1+ /LPF (None Seen)
[2020-08-16] MEDS ORDERED: KCL 20 MEQ ERTAB PO ONE (14:09)
== END 2020-08-16 14:45 | disposition home or self-care (01) ==
LOC: EDH 12:15
DX: K29.70 Gastritis, unspecified, without bleeding (principal); E87.6 Hypokalemia; R00.2 Palpitations; E11.9 Type 2 diabetes mellitus without complications; E03.0 Congenital hypothyroidism with diffuse goiter; R03.0 Elevated blood-pressure reading, without diagnosis of hypertension; Z90.49 Acquired absence of other specified parts of digestive tract
CPT/HCPCS: 36415; 74177; 80053; 81001; 83690; 84484; 85025; 93005; 96372; 96374; 99285; J0500; J3490; Q9967